=== PATIENT | female | born 1955 | race Caucasian/White ===

== ENCOUNTER 2017-11-14 05:42 | Outpatient (CLI) | payer BC ==
[~2017-11-14] VITALS: Ht 157.5 cm; Wt 74.8 kg
[2017-11-15] MEDS ORDERED: LISI1TAB6 PO (14:22)
[2017-11-15] MEDS ORDERED: CELE200C PO (14:22)
[2017-12-05] MEDS ORDERED: CHOL200059 PO (15:30)
[2017-12-05] MEDS ORDERED: NF-ESOM40C PO (15:30)
== END 2017-11-15 12:20 ==
LOC: PREOP 05:42
PROVIDERS: ATTEND Specialist
DX: Z01.818 Encounter for other preprocedural examination (principal)

== ENCOUNTER 2017-11-16 10:07 | Day surgery (SDC) | payer BC ==
[~2017-11-16] VITALS: Ht 157.5 cm; Wt 74.8 kg
[~2017-11-16 10:07] MED LIST: CELE200C PO; LISI1TAB6 PO
[2017-11-16 10:15] VITALS: BP 141/77
[2017-11-16] MEDS ORDERED: POVIDONE (BETADINE) OPHTH SOLN 5% 30 ML OP ONE (10:15)
[2017-11-16] MEDS ORDERED: TIMOLOL MALEATE 0.5% 5 ML (TIMOPTIC) BTL OU PRN (10:15)
[2017-11-16] MEDS ORDERED: LIDOCAINE PF 1% 2 ML AMP IR PRN (10:15)
[2017-11-16] MEDS ORDERED: EPINEPHrine INJECTION 1 MG/ML AMP INJ ONE (10:15)
[2017-11-16] MEDS ORDERED: VANCOMYCIN/BSS (COMPOUNDED) 10 MG/ML SYR OP ONE (10:15)
[2017-11-16] MEDS: TETRACAINE 0.5% OPHTH SOLN 4 ML BTL (SINGLE DOSE ONLY) OU PRN ×4 (10:26→10:37)
[2017-11-16] MEDS: CYCLOPENTOLATE 1% (CYCLOGYL) 2 ML DROPS OP SCH ×3 (10:29→10:37)
[2017-11-16] MEDS: PHENYLEPHRINE 10% OPHTH (NEO-SYN) 5 ML BTL OU SCH ×3 (10:30→10:37)
--- NOTE | 2017-11-16 10:49 | Ophthalmologist Pre-Op Note ---
Pre-Operative Progress Note H&P Reviewed The H&P was reviewed, patient examined and no changes noted. Date H&P Reviewed: November 16, 2017 Time H&P Reviewed: 10:48 Pre-Op Dx Cataract, Right Eye AKOSUA WESTFALL MD November 16, 2017 10:49
[2017-11-16] MEDS ORDERED: MIDAZOLAM 2 MG/2 ML (VERSED) VIAL ONE (10:51)
--- NOTE | 2017-11-16 11:12 | Ophthalmology Operative Report ---
Cataract removal/placement IOL PREOPERATIVE DIAGNOSIS: Cataract Right Eye POSTOPERATIVE DIAGNOSIS: Cataract Right Eye PROCEDURE: Cataract removal and placement of posterior chamber implant, right eye SURGEON: Yaya Westfall ANESTHESIA: Topical with sedation COMPLICATIONS: None ESTIMATED BLOOD LOSS: Minimal DESCRIPTION OF PROCEDURE: After proper informed consent was obtained, the patient, a 62 female, was taken to the Operating Room and the right eye was anesthetized with tetracaine. They right eye was then prepped and draped in the usual manner. A wire lid speculum was placed. A paracentesis was made at the left hand position. Preservative free lidocaine was injected into the anterior chamber followed by viscoelastic. A clear corneal incision was made in the temporal position. A capsulorrhexis was preformed and the central nuclear and cortical material were removed. The posterior capsule was polished and Daryl 18.5 SN6CWS IOL was placed into the capsular bag. The residual viscoelastic was aspirated and balanced saline solution was injected into the anterior chamber. 0.1ml of Vancomycin (10mg/0.1ml ) was injected into the anterior chamber. The wound was checked and found to be water tight. The patient tolerated the procedure well without complications. YAYA WESTFALL MD November 16, 2017 11:12
[2017-11-16 11:13] VITALS: BP 126/84
--- NOTE | 2017-11-16 12:27 | Anesthesia-General Post-Op ---
MAC Patient Condition Mental Status/LOC: Same as Preop Cardiovascular: Satisfactory Nausea/Vomiting: Absent Respiratory: Satisfactory Pain: Controlled Complications: Absent Post Op Complications Complications None Follow Up Care/Instructions Patient Instructions None needed. Anesthesiology Discharge Order Discharge Order Patient is doing well, no complaints, stable vital signs, no apparent adverse anesthesia problems. No complications reported per nursing. RODRIGUE GARNICA CRNA November 16, 2017 12:27
[2017-12-05] MEDS ORDERED: CHOL200059 PO (15:30)
[2017-12-05] MEDS ORDERED: NF-ESOM40C PO (15:30)
== END 2017-11-16 11:13 | disposition home or self-care (01) ==
LOC: SDC 10:07
PROVIDERS: ATTEND Specialist
DX: H26.9 Unspecified cataract (principal); I10 Essential (primary) hypertension; Z79.899 Other long term (current) drug therapy

== ENCOUNTER 2017-12-05 15:30 | Outpatient (CLI) | payer BC ==
[~2017-12-05] VITALS: Ht 157.5 cm; Wt 72.1 kg
[~2017-12-05 15:30] MED LIST changes: +CHOL200059 PO; +NF-ESOM40C PO
== END 2017-12-05 15:36 ==
LOC: PREOP 15:30
PROVIDERS: ATTEND Specialist
DX: Z01.818 Encounter for other preprocedural examination (principal)

== ENCOUNTER 2017-12-07 09:57 | Day surgery (SDC) | payer BC ==
[~2017-12-07] VITALS: Ht 157.5 cm; Wt 72.1 kg
[2017-12-07 10:05] VITALS: BP 137/79
[2017-12-07] MEDS: TETRACAINE 0.5% OPHTH SOLN 4 ML BTL (SINGLE DOSE ONLY) OU PRN ×4 (10:09→10:19)
[2017-12-07] MEDS: CYCLOPENTOLATE 1% (CYCLOGYL) 2 ML DROPS OP SCH ×3 (10:13→10:19)
[2017-12-07] MEDS: PHENYLEPHRINE 10% OPHTH (NEO-SYN) 5 ML BTL OU SCH ×3 (10:13→10:19)
[2017-12-07] MEDS ORDERED: POVIDONE (BETADINE) OPHTH SOLN 5% 30 ML OP ONE (10:15)
[2017-12-07] MEDS ORDERED: LIDOCAINE PF 1% 2 ML AMP IR PRN (10:15)
[2017-12-07] MEDS ORDERED: TIMOLOL MALEATE 0.5% 5 ML (TIMOPTIC) BTL OU PRN (10:15)
[2017-12-07] MEDS ORDERED: EPINEPHrine INJECTION 1 MG/ML AMP INJ ONE (10:15)
[2017-12-07] MEDS ORDERED: VANCOMYCIN/BSS (COMPOUNDED) 10 MG/ML SYR OP ONE (10:15)
--- NOTE | 2017-12-07 10:21 | Ophthalmologist Pre-Op Note ---
Pre-Operative Progress Note H&P Reviewed The H&P was reviewed, patient examined and no changes noted. Date H&P Reviewed: Dec 07, 2017 Time H&P Reviewed: 10:20 Pre-Op Dx Cataract, Left Eye AKOSUA WESTFALL MD Dec 07, 2017 10:21
[2017-12-07] MEDS ORDERED: MIDAZOLAM 2 MG/2 ML (VERSED) VIAL ONE (10:27)
--- NOTE | 2017-12-07 10:51 | Ophthalmology Operative Report ---
Cataract removal/placement IOL PREOPERATIVE DIAGNOSIS: Cataract Left Eye POSTOPERATIVE DIAGNOSIS: Cataract Left Eye PROCEDURE: Cataract removal and placement of posterior chamber implant, left eye SURGEON: Yaya Westfall ANESTHESIA: Topical with sedation COMPLICATIONS: None ESTIMATED BLOOD LOSS: Minimal DESCRIPTION OF PROCEDURE: After proper informed consent was obtained, the patient, a 62 female, was taken to the Operating Room and the left eye was anesthetized with tetracaine. The left eye was then prepped and draped in the usual manner. A wire lid speculum was placed. A paracentesis was made at the left hand position. Preservative free lidocaine was injected into the anterior chamber followed by viscoelastic. A clear corneal incision was made in the temporal position. A capsulorrhexis was preformed and the central nuclear and cortical material were removed. The posterior capsule was polished and an Daryl 17.5 SN6CWS IOL was placed into the capsular bag. The residual viscoelastic was aspirated and balanced saline solution was injected into the anterior chamber. 0.1 ml of Vancomycin (1mg/0.1ml ) was injected into the anterior chamber. The wound was checked and found to be water tight. The patient tolerated the procedure well without complications. YAYA WESTFALL MD Dec 07, 2017 10:51
--- NOTE | 2017-12-07 12:46 | Anesthesia-General Post-Op ---
MAC Patient Condition Mental Status/LOC: Same as Preop Cardiovascular: Satisfactory Nausea/Vomiting: Absent Respiratory: Satisfactory Pain: Controlled Complications: Absent Post Op Complications Complications None Follow Up Care/Instructions Patient Instructions None needed. Anesthesiology Discharge Order Discharge Order Patient is doing well, no complaints, stable vital signs, no apparent adverse anesthesia problems. No complications reported per nursing. BRODIE WARD CRNA Dec 07, 2017 12:46
== END 2017-12-07 11:53 | disposition home or self-care (01) ==
LOC: SDC 09:57
PROVIDERS: ATTEND Specialist
DX: H26.9 Unspecified cataract (principal); I10 Essential (primary) hypertension; Z79.899 Other long term (current) drug therapy